=== PATIENT | female | born 1990 | race Caucasian/White ===

== ENCOUNTER 2018-05-01 03:01 | Emergency (ER) | payer BC ==
[2018-05-01] MEDS: morphine 4 MG/ML VIAL IV ×2 (04:21→05:55)
[2018-05-01 04:27] LABS: ADD MAN DIFF? NO
[2018-05-01] MEDS: LACTATED RINGER'S 1,000 ML IV (04:27)
[2018-05-01 04:28] LABS: BASOPHILS % 0.3 % (0.0-2.0); EOSINOPHILS # 0.1 10^3/ul (0.0-0.5); EOSINOPHILS % 0.4 % (0.0-7.0); HEMATOCRIT 40.9 % (37.0-47.0); HEMOGLOBIN 13.7 g/dl (12.0-16.0); LYMPHOCYTES # 1.4 10^3/ul (0.8-2.9); LYMPHOCYTES % 11.7 % (15.0-51.0); MEAN CORPUSCULAR HEMOGLOBIN 30.7 pg (29.0-33.0); MEAN CORPUSCULAR HGB CONC 33.5 g/dl (32.0-37.0); MEAN CORPUSCULAR VOLUME 91.7 fl (82.0-101.0); MEAN PLATELET VOLUME 10.5 fl (7.4-10.4); MONOCYTE # 0.7 10^3/ul (0.3-0.9); MONOCYTES % 5.3 % (0.0-11.0); NEUTROPHIL # 10.1 10^3/ul (1.6-7.5); PLATELET COUNT 194 10^3/UL (140-415); RED BLOOD COUNT 4.46 10^6/ul (4.20-5.40); RED CELL DISTRIBUTION WIDTH 11.7 % (11.5-14.5)
[2018-05-01 04:28] LABS: WHITE BLOOD COUNT 12.3 10^3/ul (4.8-10.8)
[2018-05-01 04:47] LABS: INR 0.87; PROTIME 11.9 Sec (11.9-14.9); PT RATIO 0.9
[2018-05-01 04:48] LABS: PARTIAL THROMBOPLASTIN TIME 22.9 Sec (25.0-35.0)
[2018-05-01] MEDS: DIPHTH/TET/ACEL PERTUSS (ADULT) 0.5 ML VIAL IM* (04:53)
[2018-05-01] MEDS ORDERED: CLINDAMYCIN 300 MG INJ IM (06:00)
[2018-05-01] MEDS ORDERED: CLINDAMYCIN 600 MG INJ IM (06:00)
[2018-05-01] MEDS: ONDANSETRON 4 MG INJ IV ×2 (06:31→06:37)
[2018-05-01] MEDS: DIPHENHYDRAMINE 50 MG INJ IV (06:35)
[2018-05-01] MEDS ORDERED: CLINDAMYCIN 600 MG INJ IV (07:30)
[2018-05-01] MEDS: CLINDAMYCIN 600 MG/D5W (PMX) 50 ML IVPB (07:43)
== END 2018-05-01 08:34 | disposition home or self-care (01) ==
LOC: FTE 03:01
DX: S01.511A Laceration without foreign body of lip, initial encounter (principal); X58.XXXA Exposure to other specified factors, initial encounter; Y92.9 Unspecified place or not applicable
CPT/HCPCS: 12011; 70486; 80307; 85025; 85610; 85730; 96365; 96375; 96376; 99284-25

== ENCOUNTER 2018-05-03 16:03 | Emergency (ER) | payer SELFPAY, BC | END 2018-05-03 18:03 | disposition left against medical advice (07) | LOC: FTE 18:03 | DX: Z53.21 Procedure and treatment not carried out due to patient leaving prior to being seen by health care provider (principal) ==